=== PATIENT | female | born 1950 | race African-American/Black ===

== ENCOUNTER → 2020-11-29 | Outpatient (CLI) | payer OTHER ==
[~2020-11-29] MED LIST: AMLO10TA4 PO; ASPI-482 PO; CRESTOR10 MG PO; FURO-69 PO; IRBE75TA16 PO; OMEP40CA7 PO
--- NOTE | 2020-11-29 16:01 | KCIC ---
PA and lateral views of the chest. Comparison: None. Indication: Sinus infection with cough Findings: There is eventration of the right hemidiaphragm. The heart size is enlarged. No pneumothorax or effus ion. No air space or interstitial disease. The bony structures are intact. Impression: 1. No acute cardiopulmonary process. Electronically signed by: Chacho Eller MD (11/29/2020 3:58 PM) [facility]
== END ==
LOC: KCIC 15:35
PROVIDERS: ATTEND Family Medicine
DX: I51.7 Cardiomegaly (principal); K44.9 Diaphragmatic hernia without obstruction or gangrene; R05 Cough; J32.9 Chronic sinusitis, unspecified
CPT/HCPCS: 71046